=== PATIENT | female | born 1970 | race Caucasian/White ===

== ENCOUNTER 2021-03-05 18:27 | Emergency (ER) | payer BC ==
[~2021-03-05 18:27] MED LIST: BENTYL 20MG TAB20 MG PO; ZOFRAN ODT 4 MG4 MG PO
[2021-03-05 19:18] LABS: HEMOGLOBIN 14.1 gm/dl (12.3-15.3); RED BLOOD COUNT 4.65 M/UL (4.00-5.10); WHITE BLOOD COUNT 6.5 K/UL (4.5-11.0)
[2021-03-05 19:37] LABS: BUN/CREATININE RATIO 10 (0-10)
[2021-03-05] MEDS ORDERED: ZESTRIL10 MG PO (23:07)
== END 2021-03-05 23:20 | disposition home or self-care (01) ==
LOC: ER1 18:27
PROVIDERS: Emergency Medicine
DX: R07.9 Chest pain, unspecified (principal); R06.02 Shortness of breath; I10 Essential (primary) hypertension; F17.200 Nicotine dependence, unspecified, uncomplicated
CPT/HCPCS: 71045; 80053; 82550; 82553; 83690; 83735; 83874; 84484; 84703; 85025; 93005; 96374; 96375; 99285; J0360

== ENCOUNTER → 2021-12-26 | Outpatient (CLI) | payer BC ==
[~2021-12-26] MED LIST changes: +ZESTRIL10 MG PO
== END ==
LOC: HEART 5 09:42
DX: R07.9 Chest pain, unspecified (principal); I10 Essential (primary) hypertension; I08.1 Rheumatic disorders of both mitral and tricuspid valves
CPT/HCPCS: 93306